=== PATIENT | female | born 1985 | race Two or more races ===

== ENCOUNTER 2017-01-16 01:07 | Emergency (ER) | payer OTHER ==
--- NOTE | 2017-01-16 01:10 | PDOC ---
History of Present Illness - General Chief Complaint: Shortness of Breath Stated Complaint: ANXIETY Time Seen by Provider: 01/16/17 01:09 - History of Present Illness Initial Comments: This 31-year-old woman with a history of ALLERGIES to penicillin/trazodone as well as peach/scallops but no previous history of sensitivity to household chemicals presents with episode of sensation of shortness of breath after using household cleaning solution. The patient is visiting from [place] and was helping her aunt clean several rooms in her house today. She was going to sleep tonight, she had sensation that her breathing was more difficult than usual. Patient has a history of anxiety attacks (none for approximately 4 years ) and states that this did not feel like her usual anxiety episodes. She began to have lightheadedness and hand spasms along with a sensation that she could not catch her breath. She is brought here by her family. No history of asthma or chronic other respiratory illnesses. She has not had any recent cough/cold or febrile illness. The patient is a pathologist; she states that she initially was worried that the symptoms that she was experiencing was secondary to pulmonary embolism (she drove up 3 hours from [place] yesterday; she had slight soreness in her left calf earlier today. Past History - Past Medical History Allergies/Adverse Reactions: Allergies Allergy/AdvReac Type Severity Reaction Status Date / Time peach Allergy Verified 01/16/17 01:12 Penicillins Allergy Verified 01/16/17 01:11 scallops Allergy Verified 01/16/17 01:12 trazodone Allergy Verified 01/16/17 01:11 ARGAN OIL Allergy Uncoded 01/16/17 01:12 Home Medications: Ambulatory Orders Ranitidine HCl 75 mg PO PRN PRN 01/16/17 Review of Systems - Review of Systems Able to Perform ROS?: Yes Comments:: 12 point review of systems is negative except for what is noted in the history of present illness *Physical Exam - Physical Exam Comments: GENERAL: Adult female, appearing anxious and hyperventilating but in no acute respiratory distress Oxygenation 100% on room air HEAD: Normal with no signs of trauma. EYES: PERRLA, EOMI, sclera anicteric, conjunctiva clear. ENT: Ears normal, nares patent, oropharynx clear without exudates. Dry mucous membranes. NECK: Normal range of motion, supple without lymphadenopathy, JVD, or masses. LUNGS: Breath sounds equal, clear to auscultation bilaterally. No wheezes, and no crackles. HEART:Regular rate and rhythm, normal S1 and S2 without murmur, rub or gallop. ABDOMEN:.normal bowel sounds No guarding,tenderness or rebound.No masses No distention. EXTREMITIES: Normal range of motion, no edema. No clubbing or cyanosis. No erythema, or tenderness. NEUROLOGICAL: Cranial nerves II through XII grossly intact. Normal speech. No focal neurological deficits. MUSCULOSKELETAL: Back non-tender to palpation, no CVA tenderness SKIN: Warm, Dry, normal turgor, no rashes or lesions noted. Medical Decision Making - Medical Decision Making This 31-year-old woman with a history of anxiety but no recent acute episodes presents with mild respiratory difficulty followed by symptoms suggestive of hyperventilation. On presentation, patient was extremely anxious but in no respiratory distress. Exam revealed pulse oximetry of 100% with pharyngeal/neck/lung exam completely normal. Clinical presentation most consistent with mild respiratory irritation, perhaps reaction to the chemical finisher tailor apprentice that she had been using throughout the day. The patient then likely had onset of anxiety with hyperventilation. No evidence of persistent bronchospasm or other signs of respiratory injury. This was discussed with the patient who was a pathologist. Although she is gradually feeling calmer and has minimal breathing difficulty currently, it was felt that small dose of tranquilizer might be helpful to her. The patient has had alprazolam in the past in the past for her panic attacks 01/16/17 02:04 Patient felt markedly better after 0.25 mg of alprazolam. She states that her breathing is totally normal and she feels no further symptoms of anxiety. Patient will be discharged with instructions to stay in a well ventilated area overnight. According to the patient and her aunt, there is a downstairs bedroom which was not cleaned with the particular solvent that was used upstairs. Patient will stay there overnight. Meanwhile, she has any further sensation of shortness of breath or if she develops cough/wheezing, she should return here to the emergency room. *DC/Admit/Observation/Transfer Diagnosis at time of Disposition: Sensitivity to chemical, Anxiety - Discharge Dispostion Disposition: HOME Condition at time of disposition: Stable - Referrals Referrals: STAFF,NOT ON [Primary Care Provider] - - Patient Instructions Printed Discharge Instructions: DI for Hyperventilation Additional Instructions: rest, drink plenty of fluids stay in area of home with good ventilation return if you have any persistent difficulty breathing/wheezing/ cough
[2017-01-16 01:20] VITALS: BP 134/72; PULSE 112; TEMP 97.7; BMI 21.1
[2017-01-16] MEDS ORDERED: ALPRAZolam 0.25 MG TABLET PO ONE (01:33)
[2017-01-16] MEDS ORDERED: ALPRAZolam 0.25 MG TABLET ONE (01:35)
== END 2017-01-16 02:02 | disposition home or self-care (01) ==
LOC: FER 01:07
DX: Z77.018 Contact with and (suspected) exposure to other hazardous metals (principal); F41.9 Anxiety disorder, unspecified
CPT/HCPCS: 99281-25

== ENCOUNTER 2017-07-14 18:51 | Emergency (ER) | payer BC, OTHER ==
[2017-07-14 19:13] VITALS: BP 129/82; PULSE 96; TEMP 97.4; BMI 21.1
[2017-07-14] MEDS ORDERED: CEFUROXIME AXETIL 500 MG TABLET PO ONE (19:32)
--- NOTE | 2017-07-14 19:37 | PDOC ---
History of Present Illness - History of Present Illness Initial Comments: 07/14/17 19:38 The patient is a 32 year old female with history of left sided TMJ who presents to the ED complaining of several months of left sided jaw and ear pain, worse over the past few days. The patient reports she had an exacerbation of her TMJ in the Spring of this year and has since had persistent pain for which she has been taking Advil and applying warm compresses. Over one month ago she was evaluated at an Urgent Care facility for worsening of her pain. She was prescribed a course of Azithromycin which she reports she completed approximately 1 month ago. She also completed a Prednisone course today. She continues to have pain with drainage sensation in her left ear and throat. She also reports an associated diffuse headache. No fever, but has noted intermittent night sweats. No sore throat or cough. No visual changes. <Viky Noguera - Last Filed: 07/14/17 19:38> <Hai East - Last Filed: 07/14/17 20:53> - General Chief Complaint: Headache Stated Complaint: HEADACHE Time Seen by Provider: 07/14/17 19:31 Past History <Viky Noguera - Last Filed: 07/14/17 19:38> - Past Medical History COPD: No GI Disorders: Yes (GERD) Psychiatric Problems: Yes (DEPRESSION/ANXIETY) Other medical history: TMJ - Immunization History Immunization Up to Date: Yes - Suicide/Smoking/Psychosocial Hx Smoking History: Never smoked Have you smoked in the past 12 months: No Information on smoking cessation initiated: No Hx Alcohol Use: No Drug/Substance Use Hx: No Substance Use Type: None <Hai East - Last Filed: 07/14/17 20:53> - Past Medical History Allergies/Adverse Reactions: Allergies Allergy/AdvReac Type Severity Reaction Status Date / Time peach Allergy Swelling Verified 07/14/17 18:53 Penicillins Allergy Swelling Verified 07/14/17 18:53 scallops Allergy Swelling Verified 07/14/17 18:53 trazodone Allergy Rash Verified 07/14/17 18:53 ARGAN OIL Allergy Rash Uncoded 07/14/17 18:53 Home Medications: Ambulatory Orders Cefuroxime Axetil [Ceftin -] 500 mg PO Q12H #20 tablet 07/14/17 Ibuprofen [Motrin -] 400 mg PO PRN PRN 07/14/17 Review of Systems - Review of Systems Able to Perform ROS?: Yes Comments:: 07/14/17 19:54 GENERAL/CONSTITUTIONAL: No fever or chills. No weakness. HEAD, EYES, EARS, NOSE AND THROAT: +L ear pain with draining sensation. No change in vision. No sore throat. GASTROINTESTINAL: No nausea, vomiting, diarrhea or constipation. GENITOURINARY: No dysuria, frequency, or change in urination. CARDIOVASCULAR: No chest pain or shortness of breath. RESPIRATORY: No cough, wheezing, or hemoptysis. MUSCULOSKELETAL: No joint or muscle swelling or pain. No neck or back pain. SKIN: No rash NEUROLOGIC: +FRANK. No vertigo, loss of consciousness, or change in strength/ sensation. ENDOCRINE: No increased thirst. No abnormal weight change. HEMATOLOGIC/LYMPHATIC: No anemia, easy bleeding, or history of blood clots. ALLERGIC/IMMUNOLOGIC: No hives or skin allergy. <Viky Noguera - Last Filed: 07/14/17 19:38> *Physical Exam - Vital Signs Last Vital Signs Temp Pulse Resp BP Pulse Ox 97.4 F L 96 H 20 129/82 100 07/14/17 18:52 07/14/17 18:52 07/14/17 18:52 07/14/17 18:52 07/14/17 18:52 - Physical Exam Comments: 07/14/17 19:53 07/14/17 19:55 GENERAL: Awake, alert, and fully oriented, in no acute distress HEAD: No signs of trauma EYES: PERRLA, EOMI, sclera anicteric, conjunctiva clear ENT: +Right TM is opque with suggestion of mucoid fluid behing the TM, no erythema or bulging, no inflammation of the eextxernal canal. No external swelling or inflammation of the face, outer ear, posterior auricular area or neck. Hearing grossly normal, nares patent, oropharynx clear without exudates. Moist mucosa NECK: Normal ROM, supple, no lymphadenopathy, JVD, or masses. No notable nodes to palpation in the anterior or posterior cervical lymph node chain. EXTREMITIES: Normal range of motion, no edema. No clubbing or cyanosis. No cords or erythema. SKIN: Warm, Dry, normal turgor, no rashes or lesions noted. <Viky Noguera - Last Filed: 07/14/17 19:38> - Vital Signs Last Vital Signs Temp Pulse Resp BP Pulse Ox 97.4 F L 96 H 20 129/82 100 07/14/17 18:52 07/14/17 18:52 07/14/17 18:52 07/14/17 18:52 07/14/17 18:52 <Hai East - Last Filed: 07/14/17 20:53> ED Treatment Course - Medications Given in the ED: ED Medications Discontinued Medications Generic Name Dose Route Start Last Admin Trade Name Freq PRN Reason Stop Dose Admin Cefuroxime Axetil 500 mg 07/14/17 19:32 07/14/17 19:34 Ceftin - PO 07/14/17 19:33 500 mg ONCE ONE Administration <Viky Noguera - Last Filed: 07/14/17 19:38> Medical Decision Making - Medical Decision Making 07/14/17 20:48 Patient with a confusing array of symptoms and history. She describes severe TMJ symptoms that are persistent, was diagnosed several weeks ago with the right otitis externa as well and completed a course of Zithromax for this illness. She states she had swollen lymph nodes in the posterior auricular area at that time. These have resolved, but there is persistent sensation of fullness in the air and drainage in the back of her throat. There is no fever, cough, shortness of breath, difficulty breathing or swallowing. 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 She finished her course of antibiotics several weeks ago and is on no medication at present other than Advil. Examination is significant only for an opaque right TM with the suggestion of mucoid fluid behind the drum. There is no bulging or erythema. There is no sign of inflammation of the external canal, and no swelling, warmth, erythema, or tenderness of the face, external ear, posterior auricular area, or neck. There are no palpable nodes Impression is persistent serous/mucoid otitis media. Probably inflammatory. Plan to initiate another course of antibiotics pending evaluation by her maxillofacial surgeon later in the week. Suggested that she awaiting imaging according to the discretion of her specialist. She agrees and antibiotics are begun, discharged fully ambulatory and in no obvious pain or other distress to follow-up as directed <Hai East - Last Filed: 07/14/17 20:53> *DC/Admit/Observation/Transfer - Attestations Scribe Attestion: 07/14/17 19:58 Documentation prepared by Viky Noguera, acting as medical imaging tech for Hai East MD. <Viky Noguera - Last Filed: 07/14/17 19:38> - Discharge Dispostion Admit: No <Hai East - Last Filed: 07/14/17 20:53> Diagnosis at time of Disposition: Otitis media Qualifiers: Otitis media type: mucoid Chronicity: acute Laterality: right Qualified Code(s) : H65.111 - Acute and subacute allergic otitis media (mucoid) (sanguinous) ( serous), right ear - Discharge Dispostion Disposition: HOME Condition at time of disposition: Good - Prescriptions Prescriptions: Cefuroxime Axetil [Ceftin -] 500 mg PO Q12H #20 tablet - Patient Instructions Printed Discharge Instructions: Middle Ear Infection Additional Instructions: Rest, medication as directed. If increased pain or fever return ER. Otherwise see maxillo-facial specialist as scheduled this week. - Post Discharge Activity Forms/Work/School Notes: Back to Work
[2017-07-14] MEDS ORDERED: CEFUROXIME AXETIL 250 MG TABLET ONE (19:39)
== END 2017-07-14 19:42 | disposition home or self-care (01) ==
LOC: FER 18:51
DX: H65.111 Acute and subacute allergic otitis media (mucoid) (sanguinous) (serous), right ear (principal); F41.8 Other specified anxiety disorders; K21.9 Gastro-esophageal reflux disease without esophagitis
CPT/HCPCS: 99282-25